=== PATIENT | female | born 1990 | race Asian ===

== ENCOUNTER 2024-01-31 01:37 | Emergency (ER) | payer SELFPAY ==
[2024-01-31 02:02] VITALS: BP 134/83; PULSE 143; RESP 20; TEMP 98.4; BMI 23.2
== END 2024-01-31 03:50 | disposition home or self-care (01) ==
LOC: JER 01:37
DX: R00.2 Palpitations (principal); R00.0 Tachycardia, unspecified; F41.9 Anxiety disorder, unspecified
CPT/HCPCS: 93005; 93010; 99283-25